=== PATIENT | female | born 1950 | race African-American/Black ===

== ENCOUNTER 2017-08-05 13:29 | Emergency (ER) | payer SELFPAY ==
[2017-08-05 13:56] VITALS: BMI 26.1
[2017-08-05] MEDS ORDERED: SODIUM CHLORIDE 0.9% 500 ML INFUS.BAG IV ONE (16:05)
--- NOTE | 2017-08-05 16:30 | PDOC ---
History of Present Illness <Candie Wolf - Last Filed: 08/05/17 16:31> - General History Source: Patient Exam Limitations: No Limitations - History of Present Illness Initial Comments: 08/05/17 17:02 The patient is a 66 year old female with a significant PMH of HTN, HLD, vasovagal syncope, and NIDDM who presents to the emergency department with near syncope. Patient reports she felt well this morning and was at [employer] when she felt a sudden urge to defecate. She went to the bathroom and moved her bowels and after she left the bathroom she began to feel lightheaded with tunnel vision and nausea. She sat down on a chair and did not lose consciousness. She felt clammy afterwards, denies confusion. She states this episode feels exactly like her previous episodes of vasovagal syncope. She has had 5-6 episodes of vasovagal syncope over the last 5 or 6 years. Patient reports her syncope only began after she was started on amlodipine for high blood pressure. She had a stress test in the last year that was normal. She states her primary physician Dr. Verdugo has been arranging a secured entrance monitor for her. Otherwise she denies any fevers, chills, chest pain, shortness of breath, weakness or numbness. She also denies abdominal pain The patient denies chest pain, shortness of breath, headache and dizziness. Denies fever, chills, nausea, vomit, diarrhea and constipation. Denies dysuria, frequency, urgency and hematuria. Allergies: NKA Social history: No reported alcohol, drug, or cigarette use. PCP: Dr. Angeline Verdugo <Allegra Toro - Last Filed: 08/05/17 17:05> - General Chief Complaint: Lightheaded Stated Complaint: DIZZINESS Time Seen by Provider: 08/05/17 14:45 Past History - Past Medical History COPD: No Diabetes: Yes HTN: Yes Hypercholesterolemia: Yes - Surgical History Appendectomy: No Gastric Stapling: No Lung Surgery: No Neurologic Surgery: No - Immunization History Immunization Up to Date: No - Suicide/Smoking/Psychosocial Hx Smoking History: Former smoker Have you smoked in the past 12 months: No Information on smoking cessation initiated: No Hx Alcohol Use: No Drug/Substance Use Hx: No <Candie Wolf - Last Filed: 08/05/17 16:31> <Allegra Toro - Last Filed: 08/05/17 17:05> - Past Medical History Allergies/Adverse Reactions: Allergies Allergy/AdvReac Type Severity Reaction Status Date / Time shellfish derived Allergy Verified 08/05/17 13:59 Home Medications: Ambulatory Orders Amlodipine Besylate [Norvasc -] 10 mg PO DAILY 08/05/17 Metformin HCl [Glucophage] 500 mg PO BID 08/05/17 Pravastatin Sodium [Pravachol (Nf)] 40 mg PO DAILY 08/05/17 Review of Systems - Review of Systems Able to Perform ROS?: Yes Comments:: 08/05/17 17:04 GENERAL/CONSTITUTIONAL: No fever or chills. No weakness. HEAD, EYES, EARS, NOSE AND THROAT: No change in vision. No ear pain or discharge. No sore throat. GASTROINTESTINAL: No nausea, vomiting, diarrhea or constipation. GENITOURINARY: No dysuria, frequency, or change in urination. CARDIOVASCULAR: No chest pain or shortness of breath. RESPIRATORY: No cough, wheezing, or hemoptysis. MUSCULOSKELETAL: No joint or muscle swelling or pain. No neck or back pain. SKIN: No rash NEUROLOGIC: (+) Near syncope. No headache, vertigo, loss of consciousness, or change in strength/sensation. ENDOCRINE: No increased thirst. No abnormal weight change. HEMATOLOGIC/LYMPHATIC: No anemia, easy bleeding, or history of blood clots. ALLERGIC/IMMUNOLOGIC: No hives or skin allergy. <Allegra Toro - Last Filed: 08/05/17 17:05> *Physical Exam - Vital Signs Last Vital Signs Temp Pulse Resp BP Pulse Ox 98.1 F 62 16 157/68 98 08/05/17 13:52 08/05/17 13:52 08/05/17 13:52 08/05/17 13:52 08/05/17 13:52 <Candie Wolf - Last Filed: 08/05/17 16:31> - Vital Signs Last Vital Signs Temp Pulse Resp BP Pulse Ox 98.1 F 62 16 157/68 98 08/05/17 13:52 08/05/17 13:52 08/05/17 13:52 08/05/17 13:52 08/05/17 13:52 - Physical Exam Comments: 08/05/17 17:04 GENERAL: Awake, alert, and fully oriented, in no acute distress HEAD: No signs of trauma EYES: PERRLA, EOMI, sclera anicteric, conjunctiva clear ENT: Auricles normal inspection, hearing grossly normal, nares patent, oropharynx clear without exudates. Moist mucosa NECK: Normal ROM, supple, no lymphadenopathy, JVD, or masses LUNGS: Breath sounds equal, clear to auscultation bilaterally. No wheezes, and no crackles HEART: Regular rate and rhythm, normal S1 and S2, no murmurs, rubs or gallops ABDOMEN: Soft, nontender, normoactive bowel sounds. No guarding, no rebound. No masses EXTREMITIES: Normal range of motion, no edema. No clubbing or cyanosis. No cords , erythema, or tenderness NEUROLOGICAL: Normal speech, cranial nerves intact, negative pronator drift, 5/ 5 strength in all 4 extremities, normal sensation to light touch in all 4 extremities, normal cerebellar exam, normal gait, normal reflexes and tone SKIN: Warm, Dry, normal turgor, no rashes or lesions noted. <Allegra Toro - Last Filed: 08/05/17 17:05> ED Treatment Course - ADDITIONAL ORDERS Additional order review: Laboratory Results 08/05/17 14:24 POC Glucometer [id number] 08/05/17 14:24 POC Glucometer [id number] - RADIOLOGY Radiology Studies Ordered: Category Date Time Status CHEST PA & LAT [RAD] Stat Radiology 08/05/17 16:05 Ordered <Candie Wolf - Last Filed: 08/05/17 16:31> - LABORATORY CBC & Chemistry Diagram: 08/05/17 16:59 08/05/17 16:59 - ADDITIONAL ORDERS Additional order review: Laboratory Results 08/05/17 14:24 POC Glucometer [id number] 08/05/17 14:24 POC Glucometer [id number] <Allegra Toro - Last Filed: 08/05/17 17:05> Medical Decision Making - Medical Decision Making 08/05/17 16:33 66-year-old female with a history of hypertension, hyperlipidemia, diabetes, vasovagal syncope presents to the emergency department with an episode of presyncope. Vitals and exam here unremarkable. Symptoms consistent with previous vasovagal syncope given the prodrome of lightheadedness, urge to defecate, and tunnel vision followed by clamminess. It's possible that the patient's symptoms are due to amlodipine as her syncope only began to occur after she was initiated on amlodipine 5-6 years ago. Case discussed with nurse practitioner Milena Verdugo with whom the patient follows as an outpatient. Will obtain blood work to evaluate for anemia versus elevated troponin versus metabolic disarray as well as chest x-ray and reassess. Pt signed out to evening attending for further eval and dispo. <Candie Wolf - Last Filed: 08/05/17 16:31> *DC/Admit/Observation/Transfer - Discharge Dispostion Admit: No - Attestations Physician Attestion: 08/05/17 16:38 I, Dr. Candie Wolf MD, attest that this document has been prepared under my direction and personally reviewed by me in its entirety. I further attest, that it accurately reflects all work, treatment, procedures and medical decision -making performed by me. <Candie Wolf - Last Filed: 08/05/17 16:31> - Attestations Scribe Attestion: 08/05/17 17:04 Documentation prepared by Allegra Toro, acting as medical scientist for Candie Wolf MD. <Allegra Toro - Last Filed: 08/05/17 17:05> Diagnosis at time of Disposition: Pre-syncope - Discharge Dispostion Disposition: HOME Condition at time of disposition: Stable - Referrals Referrals: ON STAFF,NOT [Primary Care Provider] - - Patient Instructions Printed Discharge Instructions: DI for Syncope in Adults (Fainting) Additional Instructions: Follow-up with Nurse Ortiz Verdugo in one to 3 days. Stay hydrated and drink plenty of fluids. Take your blood pressure medication (amlodipine) daily at night after eating a meal and drink plenty of fluids. Return to the emergency department if you have any new, worsening or concerning symptoms. - Post Discharge Activity
[2017-08-05 17:04] LABS: BASO % 0.7 % (0-2.0); EOS % 2.6 % (0-4.5); HEMATOCRIT 37.7 % (32.4-45.2); HEMOGLOBIN 12.6 GM/dL (10.7-15.3); LYMPH % 40.2 % (8-40); MCH 31.6 pg (25.7-33.7); MCHC 33.4 g/dl (32.0-36.0); MEAN CELL VOLUME 94.5 fl (80-96); MEAN PLT VOLUME 8.2 fl (7.5-11.1); MONO % 7.9 % (3.8-10.2); NEUT % 48.6 % (42.8-82.8); PLATELET COUNT 276 K/MM3 (134-434); RBC 3.99 M/mm3 (3.60-5.2); RDW 14.4 % (11.6-15.6); WHITE BLOOD COUNT 9.7 K/mm3 (4.0-10.0)
[2017-08-05 17:39] LABS: ALBUMIN 3.8 g/dl (3.4-5.0); ANION GAP 6 (8-16); BILIRUBIN,TOTAL 0.2 mg/dL (0.2-1.0); BLOOD UREA NITROGEN 15 mg/dL (7-18); CALCIUM 8.4 mg/dL (8.5-10.1); CHLORIDE 107 mmol/L (98-107); CO2 29 mmol/L (21-32); CREATININE 0.7 mg/dL (0.55-1.02); GLUCOSE,RANDOM 134 mg/dL (74-106); MAGNESIUM 1.8 mg/dL (1.8-2.4); POTASSIUM 3.7 mmol/L (3.5-5.1); SGOT/AST 9 U/L (15-37); SGPT/ALT 23 U/L (12-78); SODIUM 142 mmol/L (136-145); TOT PROT 7.3 g/dl (6.4-8.2)
[2017-08-05 17:42] LABS: ALK PHOS 91 U/L (45-117)
[2017-08-05 18:52] VITALS: TEMP 97.8
--- NOTE | 2017-08-05 19:20 | PDOC ---
*Physical Exam - Vital Signs Last Vital Signs Temp Pulse Resp BP Pulse Ox 97.8 F 68 16 129/64 98 08/05/17 18:51 08/05/17 18:51 08/05/17 18:51 08/05/17 18:51 08/05/17 18:51 - Physical Exam Comments: 08/05/17 19:15 Gen: aaox3, nad Heart: +s1s2 reg, slight 2/6 murmur lungs: cta b/l abd: soft, nt/nd +bs ext: no c/c/e neuro: no focal neuro deficits, ambulatory in the ED ED Treatment Course - LABORATORY CBC & Chemistry Diagram: 08/05/17 16:59 08/05/17 16:59 - ADDITIONAL ORDERS Additional order review: Laboratory Results 08/05/17 08/05/17 16:59 14:24 Sodium 142 Potassium 3.7 Chloride 107 Carbon Dioxide 29 Anion Gap 6 L BUN 15 Creatinine 0.7 Creat Clearance w eGFR > 60 POC Glucometer [id number] Random Glucose 134 H Calcium 8.4 L Magnesium 1.8 Total Bilirubin 0.2 AST 9 L ALT 23 Alkaline Phosphatase 91 Troponin I < 0.02 Total Protein 7.3 Albumin 3.8 08/05/17 08/05/17 16:59 14:24 RBC 3.99 MCV 94.5 MCHC 33.4 RDW 14.4 MPV 8.2 Neutrophils % 48.6 Lymphocytes % 40.2 H Monocytes % 7.9 Eosinophils % 2.6 Basophils % 0.7 POC Glucometer [id number] - Medications Given in the ED: ED Medications Discontinued Medications Generic Name Dose Route Start Last Admin Trade Name Yang PRN Reason Stop Dose Admin Sodium Chloride 1,000 ml 08/05/17 16:05 08/05/17 17:04 Normal Saline - IV 08/05/17 16:06 1,000 ml ONCE ONE Administration Medical Decision Making - Medical Decision Making 08/05/17 19:16 pt signed out pending labs, cxr for eval of lightheaded after having a large bm earlier today discussed labs and cxr - no acute findings pt states feeling better has been ambulatory to the bathroom states her PMD is Dr. Verdugo and she has seen a furniture mechanic at [facility] - had a stress test last September - told to have it repeated but never follow up no cp/sob. No abd pain. No focal neuro findings mild murmur on exam - told this by PMD recommended pt call her PMD tomorrow for follow up along with the [facility] [employer]. States she lives in [place] and understands all instructions. Pt stable for d/c to home at this time. Answered all questions. Daughter at the bedside and agrees with the plan. *DC/Admit/Observation/Transfer Diagnosis at time of Disposition: Pre-syncope - Discharge Dispostion Disposition: HOME Condition at time of disposition: Stable Admit: No - Referrals Referrals: ON STAFF,NOT [Primary Care Provider] - - Patient Instructions Printed Discharge Instructions: DI for Syncope in Adults (Fainting) Additional Instructions: Follow-up with Nurse Ortiz Verdugo in one to 3 days. Stay hydrated and drink plenty of fluids. Take your blood pressure medication (amlodipine) daily at night after eating a meal and drink plenty of fluids. Return to the emergency department if you have any new, worsening or concerning symptoms. - Post Discharge Activity
[2017-08-05 20:04] VITALS: BP 134/76; PULSE 66
[2017-08-05 20:28] LABS: PLATELET ESTIMATE ADEQUATE
--- NOTE | 2017-08-08 08:44 | EKG ---
Test Reason : Blood Pressure : / mmHG Vent. Rate : 064 BPM Atrial Rate : 064 BPM P-R Int : 190 ms QRS Dur : 090 ms QT Int : 418 ms P-R-T Axes : 084 004 043 degrees QTc Int : 431 ms NORMAL SINUS RHYTHM NONSPECIFIC T WAVE ABNORMALITY ABNORMAL ECG NO PREVIOUS ECGS AVAILABLE Confirmed by ADRIEL GAN MD ([id number]) on 08/08/2017 8:43:43 AM Referred By: Confirmed By:ADRIEL GAN MD
== END 2017-08-05 20:04 | disposition home or self-care (01) ==
LOC: JER 13:29
DX: R55 Syncope and collapse (principal); I10 Essential (primary) hypertension; E78.00 Pure hypercholesterolemia, unspecified; E11.9 Type 2 diabetes mellitus without complications; Z79.84 Long term (current) use of oral hypoglycemic drugs; Z87.891 Personal history of nicotine dependence
CPT/HCPCS: 36415; 71046-TC-FY; 80053; 82962; 83735; 84484; 85025; 93005; 93010; 99283-25